=== PATIENT | male | born 2000 | race Caucasian/White ===

== ENCOUNTER 2024-01-05 04:12 | Day surgery (SDC) | payer OTHER ==
[2023-12-30 08:35] VITALS: BMI 23.3
[2024-01-05 11:26] VITALS: BP 116/70; PULSE 61; RESP 18; TEMP 98.2
== END 2024-01-05 11:30 | disposition home or self-care (01) ==
LOC: JASU-ENDO 04:12
PROVIDERS: ATTEND Internal Medicine Gastroenterology
PROC: 0DBN8ZX Excision of Sigmoid Colon, Via Natural or Artificial Opening Endoscopic, Diagnostic (ICD-10-PCS; principal; 2024-01-05 10:15)
DX: K64.8 Other hemorrhoids (principal); D12.8 Benign neoplasm of rectum
CPT/HCPCS: 88305-TC